=== PATIENT | female | born 1940 | race Caucasian/White ===

== ENCOUNTER 2017-02-14 16:44 | Inpatient (IN) | payer MEDICARE, OTHER ==
[~2017-02-14] VITALS: Ht 162.6 cm; Wt 59.9 kg
[~2017-02-14 16:44] MED LIST: PIPERACILLIN /TAZOBACTAM 3.375 G in IV D5W 50 ML IV SCH
[2017-02-14] MEDS ORDERED: IPRATROPIUM NEB FS 0.5 MG/2.5 ML AMPUL.NEB NEB ONE (17:00)
[2017-02-14] MEDS ORDERED: ALBUTEROL FS 2.5 MG/0.5 ML VIAL.NEB NEB ONE (17:00)
[2017-02-14] MEDS ORDERED: IPRATROPIUM NEB FS 0.5 MG/2.5 ML AMPUL.NEB ONE (17:03)
[2017-02-14] MEDS ORDERED: ALBUTEROL FS 2.5 MG/0.5 ML VIAL.NEB ONE (17:03)
[2017-02-14 17:13] LABS: BASOPHILS % (AUTO) 0.2 % (0.0-2.0); EOSINOPHILS % (AUTO) 0.2 % (0.0-6.0); HEMATOCRIT 30 % (33-45); HEMOGLOBIN 9.9 g/dL (11.5-14.8); LYMPHOCYTES # (AUTO) 0.4 /CMM (0.8-4.8); LYMPHOCYTES % (AUTO) 5.6 % (20.0-44.0); MEAN CORPUSCULAR HEMOGLOBIN 24 PG (26.0-33.0); MEAN CORPUSCULAR HGB CONC 33 g/dl (31.0-36.0); MEAN CORPUSCULAR VOLUME 74 fL (82-100); MONOCYTES # (AUTO) 0.3 /CMM (0.1-1.30); MONOCYTES % (AUTO) 4.2 % (2.0-12.0); NEUTROPHILS % (AUTO) 89.8 % (43.0-81.0); PLATELET COUNT (AUTO) 170 /CMM (150-450); RDW COEFFICIENT OF VARIATION 18.1 (11.5-15.0); RED BLOOD CELL COUNT(AUTO) 4.11 MIL/uL (4.0-5.2); WHITE BLOOD COUNT (AUTO) 7.9 K/uL (4.3-11.0)
[2017-02-14 17:23] LABS: CALCIUM, SERUM 8.8 mg/dL (8.5-10.1); CARBON DIOXIDE 31 mmol/L (21-32); CHLORIDE 96 mmol/L (98-107); CREATININE 0.9 mg/dL (0.6-1.3); GLUCOSE 155 mg/dL (74-106); POTASSIUM 3.3 mmol/L (3.5-5.1); SODIUM SERUM 133 mmol/L (136-145); UREA NITROGEN, BLOOD 16 mg/dL (7-18)
[2017-02-14 17:28] LABS: ALCOHOL, BLOOD < 3 mg/dL (0-0)
[2017-02-14 17:29] LABS: ACETAMINOPHEN 0 ug/ml (10-30); SALICYLATE 2.6 mg/dL (2.8-20.0); TROPONIN I 0.025 ng/mL (0.00-0.056)
[2017-02-14 17:35] LABS: ALANINE AMINOTRANSFERASE 30 U/L (12-78); ALBUMIN 3.4 g/dL (3.4-5.0); ALKALINE PHOSPHATASE 86 U/L (46-116); ASPARTATE AMINOTRANSFERASE 29 U/L (15-37); BILIRUBIN,DIRECT 0.1 mg/dL (0.0-0.2); BILIRUBIN,TOTAL 0.4 mg/dL (0.2-1.0); TOTAL PROTEIN, SERUM 7.7 g/dL (6.4-8.2)
[2017-02-14 17:42] LABS: INR 1.03 (0.87-1.13); PROTHROMBIN TIME 10.7 SECS (9.5-12.7)
[2017-02-14] MEDS ORDERED: CEFTRIAXONE 1 G in IV D5W 50 ML IV ONE (18:00)
[2017-02-14] MEDS ORDERED: IV NS 0.9% 1,000 ML BAG IV ONE ×2 (18:00)
[2017-02-14] MEDS ORDERED: LEVOFLOXACIN 750 MG /D5W 150ML PIGGYBACK IV ONE (18:00)
[2017-02-14] MEDS ORDERED: ACETAMINOPHEN 325 MG TABLET PO PRN (18:00)
[2017-02-14] MEDS ORDERED: POTASSIUM CL. PREMIX PERIPHER. 50 ML IV SCH (18:00)
[2017-02-14] MEDS ORDERED: VANCOMYCIN 1 GM in IV D5W 250 ML IV ONE (18:00)
[2017-02-14] MEDS ORDERED: CEFTRIAXONE 1GM BAG (ER ONLY) 50 ML IV ONE (18:10)
[2017-02-14] MEDS ORDERED: LEVOFLOXACIN 750 MG /D5W 150ML 150 ML IV ONE (18:10)
[2017-02-14] MEDS ORDERED: POTASSIUM CHLORIDE 20 MEQ TAB.PRT.SR PO ONE (19:00)
[2017-02-14 19:41] LABS: IRON, SERUM 18 ug/dl (50-175); TOTAL IRON BINDING CAPACITY 476 ug/dl (250-450)
[2017-02-14 20:36] LABS: ABG BASE EXCESS 0.7 mmol/L; ABG OXYGEN SATURATION 92.1 % (92.0-98.5); ABG PCO2 38.8 mmHg (35.0-45.0); ABG PH 7.427 (7.350-7.450); ABG PO2 68.7 mmHg (75.0-100.0); AaDO2 114.1 mmHg; COHb 0.3 % (0.5-1.5); MetHb 0.5 % (0.0-1.5); O2Hb 91.4 % (94.0-97.0); SITE, ABG Left Radial; VENT MODE, BG 3L NC
[2017-02-14] MEDS ORDERED: FEE PK DOSING 1 MIN EA MC ONE (20:51)
[2017-02-14 21:00] VITALS: BP 186/80
[2017-02-14] MEDS: methylPREDNISolone SOD SUCC 125 MG/2ML VIAL IV SCH (21:41)
[2017-02-14] MEDS: LORAZEPAM INJ 2 MG/ML VIAL IVP PRN (21:41)
[2017-02-14] MEDS: VANCOMYCIN 500 MG in IV D5W 100 ML IV SCH (22:15)
[2017-02-14] MEDS: POTASSIUM CL. PREMIX PERIPHER. 50 ML IV SCH ×3 (22:21→23:55)
[2017-02-14] MEDS: IV NS 0.9% 1,000 ML IV PRN (22:21)
[2017-02-14] MEDS: PIPERACILLIN /TAZOBACTAM 3.375 G in IV D5W 50 ML IV SCH (23:28)
[2017-02-15] VITALS (9 sets, daily range): BP systolic 154–186; BP diastolic 70–94
[2017-02-15] MEDS: IPRATROPIUM NEB FS 0.5 MG/2.5 ML AMPUL.NEB NEB SCH ×4 (02:00→20:29)
[2017-02-15] MEDS: ALBUTEROL FS 2.5 MG/3 ML VIAL.NEB NEB SCH ×4 (02:00→20:29)
[2017-02-15] MEDS: POTASSIUM CL. PREMIX PERIPHER. 50 ML IV SCH (03:34)
[2017-02-15] MEDS: VANCOMYCIN 500 MG in IV D5W 100 ML IV SCH ×2 (04:20→13:48)
[2017-02-15] MEDS: PIPERACILLIN /TAZOBACTAM 3.375 G in IV D5W 50 ML IV SCH ×3 (06:01→17:27)
[2017-02-15 06:51] LABS: HEMATOCRIT 29 % (33-45); HEMOGLOBIN 9.6 g/dL (11.5-14.8); LYMPHOCYTES # (AUTO) 0.3 /CMM (0.8-4.8); LYMPHOCYTES % (AUTO) 5.2 % (20.0-44.0); MEAN CORPUSCULAR HEMOGLOBIN 25 PG (26.0-33.0); MEAN CORPUSCULAR HGB CONC 33 g/dl (31.0-36.0); MEAN CORPUSCULAR VOLUME 77 fL (82-100); MONOCYTES # (AUTO) 0.4 /CMM (0.1-1.30); MONOCYTES % (AUTO) 5.8 % (2.0-12.0); PLATELET COUNT (AUTO) 148 /CMM (150-450); RED BLOOD CELL COUNT(AUTO) 3.76 MIL/uL (4.0-5.2); WHITE BLOOD COUNT (AUTO) 6.7 K/uL (4.3-11.0)
[2017-02-15 07:05] LABS: INR 1.08 (0.87-1.13); PROTHROMBIN TIME 11.2 SECS (9.5-12.7)
[2017-02-15 07:11] LABS: ALANINE AMINOTRANSFERASE 31 U/L (12-78); ALBUMIN 2.7 g/dL (3.4-5.0); ALKALINE PHOSPHATASE 96 U/L (46-116); ASPARTATE AMINOTRANSFERASE 28 U/L (15-37); BILIRUBIN,TOTAL 0.3 mg/dL (0.2-1.0); CALCIUM, SERUM 7.9 mg/dL (8.5-10.1); CARBON DIOXIDE 29 mmol/L (21-32); CHLORIDE 101 mmol/L (98-107); CREATININE 0.8 mg/dL (0.6-1.3); GLUCOSE 247 mg/dL (74-106); SODIUM SERUM 134 mmol/L (136-145); TOTAL PROTEIN, SERUM 6.8 g/dL (6.4-8.2); TROPONIN I 0.033 ng/mL (0.00-0.056); UREA NITROGEN, BLOOD 11 mg/dL (7-18)
[2017-02-15 07:22] LABS: CREATINE KINASE MB 1.6 ng/mL (0-3.6)
[2017-02-15] MEDS: PANTOPRAZOLE 40 MG VIAL IV SCH (09:05)
[2017-02-15] MEDS: methylPREDNISolone SOD SUCC 125 MG/2ML VIAL IV SCH ×3 (09:05→16:08)
[2017-02-15] MEDS: MORPHINE SULFATE INJ 2 MG/ML DISP.SYRIN IV PRN ×2 (10:00→17:28)
[2017-02-15] MEDS: AMLODIPINE BESYLATE 5 MG TABLET PO SCH (11:55)
[2017-02-15] MEDS ORDERED: DEXTROSE 50%-WATER 50 ML DISP.SYRIN IV PRN (12:00)
[2017-02-15] MEDS: BLOOD SUGAR DIAGNOSTIC 1 EACH STRIP IN SCH ×3 (12:04→21:06)
[2017-02-15] MEDS: ACETYLCYSTEINE 10% SOLN 400 MG/4 ML VIAL NEB SCH ×3 (13:31→23:30)
[2017-02-15] MEDS: hydrALAZINE HCL IV 20 MG VIAL IV PRN ×2 (16:07→22:49)
[2017-02-15] MEDS: IV NS 0.9% 1,000 ML IV PRN (18:25)
[2017-02-15] MEDS: LORAZEPAM INJ 2 MG/ML VIAL IVP PRN (20:52)
[2017-02-15] MEDS: VANCOMYCIN 0.75 GM in IV D5W 250 ML IV SCH (21:04)
[2017-02-15] MEDS: INSULIN REGULAR, HUMAN 100 UNIT/ML 3 ML VIAL SQ PRN (21:05)
[2017-02-16] MEDS: PIPERACILLIN /TAZOBACTAM 3.375 G in IV D5W 50 ML IV SCH ×5 (00:35→23:19)
[2017-02-16 00:51] VITALS: BP 136/88
[2017-02-16] MEDS: ALBUTEROL FS 2.5 MG/3 ML VIAL.NEB NEB SCH ×4 (01:30→19:12)
[2017-02-16] MEDS: IPRATROPIUM NEB FS 0.5 MG/2.5 ML AMPUL.NEB NEB SCH ×4 (01:30→19:12)
[2017-02-16 04:00] VITALS: BP 161/66
[2017-02-16] MEDS: hydrALAZINE HCL IV 20 MG VIAL IV PRN (05:15)
[2017-02-16 07:17] LABS: EOSINOPHILS # (AUTO) 0.1 /CMM (0.0-0.7); EOSINOPHILS % (AUTO) 1.3 % (0.0-6.0); HEMATOCRIT 28 % (33-45); HEMOGLOBIN 9.2 g/dL (11.5-14.8); LYMPHOCYTES # (AUTO) 0.5 /CMM (0.8-4.8); LYMPHOCYTES % (AUTO) 4.7 % (20.0-44.0); MEAN CORPUSCULAR HEMOGLOBIN 24 PG (26.0-33.0); MEAN CORPUSCULAR HGB CONC 32 g/dl (31.0-36.0); MEAN CORPUSCULAR VOLUME 75 fL (82-100); MONOCYTES # (AUTO) 0.7 /CMM (0.1-1.30); MONOCYTES % (AUTO) 7.3 % (2.0-12.0); NEUTROPHILS # (AUTO) 8.3 /CMM (1.8-8.9); NEUTROPHILS % (AUTO) 86.7 % (43.0-81.0); PLATELET COUNT (AUTO) 189 /CMM (150-450); RDW COEFFICIENT OF VARIATION 18.7 (11.5-15.0); RED BLOOD CELL COUNT(AUTO) 3.79 MIL/uL (4.0-5.2); WHITE BLOOD COUNT (AUTO) 9.6 K/uL (4.3-11.0)
[2017-02-16] MEDS: ACETYLCYSTEINE 10% SOLN 400 MG/4 ML VIAL NEB SCH ×2 (07:19→16:27)
[2017-02-16 07:36] LABS: CALCIUM, SERUM 8.6 mg/dL (8.5-10.1); CARBON DIOXIDE 26 mmol/L (21-32); CHLORIDE 101 mmol/L (98-107); CREATININE 0.7 mg/dL (0.6-1.3); GLUCOSE 196 mg/dL (74-106); MAGNESIUM 1.6 mg/dL (1.8-2.4); PHOSPHORUS 1.9 mg/dL (2.5-4.9); POTASSIUM 3.3 mmol/L (3.5-5.1); SODIUM SERUM 137 mmol/L (136-145); UREA NITROGEN, BLOOD 11 mg/dL (7-18)
[2017-02-16 08:00] VITALS: BP 156/75
[2017-02-16] MEDS: BLOOD SUGAR DIAGNOSTIC 1 EACH STRIP IN SCH (08:04)
[2017-02-16] MEDS: methylPREDNISolone SOD SUCC 125 MG/2ML VIAL IV SCH ×3 (08:34→17:22)
[2017-02-16] MEDS: PANTOPRAZOLE 40 MG VIAL IV SCH (08:34)
[2017-02-16] MEDS: AMLODIPINE BESYLATE 5 MG TABLET PO SCH (08:37)
[2017-02-16] MEDS: INSULIN REGULAR, HUMAN 100 UNIT/ML 3 ML VIAL SQ PRN ×4 (08:39→21:13)
[2017-02-16] MEDS: VANCOMYCIN 0.75 GM in IV D5W 250 ML IV SCH ×2 (08:45→20:37)
[2017-02-16] MEDS: Z GUARD REMEDY 2 OZ OINT TP SCH (09:42)
[2017-02-16] MEDS ORDERED: POTASSIUM CHLORIDE 20 MEQ TAB.PRT.SR PO ONE (10:00)
[2017-02-16] MEDS: Magnesium 1GM/D5W 100ML PREMIX 100 ML IV SCH ×2 (11:34→12:35)
[2017-02-16] MEDS: IV NS 0.9% 1,000 ML IV PRN (11:48)
[2017-02-16] MEDS: BLOOD SUGAR DIAGNOSTIC 1 EACH STRIP VI SCH ×3 (11:50→21:14)
[2017-02-16 12:00] VITALS: BP 159/76
[2017-02-16] MEDS ORDERED: DEXTROSE 50%-WATER 50 ML DISP.SYRIN IV PRN (12:00)
[2017-02-16] MEDS ORDERED: *INSULIN REGULAR(HUMULIN R)HUM 100 UNIT/ML VIAL SQ PRN (12:00)
[2017-02-16 16:00] VITALS: BP 159/72
[2017-02-16] MEDS ORDERED: K PHOS NEUTRAL 250 MG TABLET PO ONE (17:30)
[2017-02-16] MEDS: LACTOBACILLUS RHAMNOSUS GG 1 EACH CAP.SPRINK PO SCH (17:38)
[2017-02-16 20:00] VITALS: BP 130/66
[2017-02-16] MEDS: LORAZEPAM INJ 2 MG/ML VIAL IVP PRN (23:19)
[2017-02-17] MEDS: IPRATROPIUM NEB FS 0.5 MG/2.5 ML AMPUL.NEB NEB SCH ×4 (02:03→19:48)
[2017-02-17] MEDS: ACETYLCYSTEINE 10% SOLN 400 MG/4 ML VIAL NEB SCH ×3 (02:04→22:58)
[2017-02-17] MEDS: ALBUTEROL FS 2.5 MG/3 ML VIAL.NEB NEB SCH ×4 (02:04→19:48)
[2017-02-17 04:00] VITALS: BP 144/76
[2017-02-17] MEDS: PIPERACILLIN /TAZOBACTAM 3.375 G in IV D5W 50 ML IV SCH ×4 (05:02→23:27)
[2017-02-17 08:00] VITALS: BP 170/76
[2017-02-17 08:01] LABS: EOSINOPHILS % (AUTO) 0.4 % (0.0-6.0); HEMATOCRIT 28 % (33-45); LYMPHOCYTES # (AUTO) 0.6 /CMM (0.8-4.8); LYMPHOCYTES % (AUTO) 5.6 % (20.0-44.0); MEAN CORPUSCULAR HEMOGLOBIN 25 PG (26.0-33.0); MEAN CORPUSCULAR HGB CONC 33 g/dl (31.0-36.0); MEAN CORPUSCULAR VOLUME 75 fL (82-100); MONOCYTES # (AUTO) 0.6 /CMM (0.1-1.30); MONOCYTES % (AUTO) 5.2 % (2.0-12.0); NEUTROPHILS # (AUTO) 10.2 /CMM (1.8-8.9); NEUTROPHILS % (AUTO) 88.8 % (43.0-81.0); PLATELET COUNT (AUTO) 202 /CMM (150-450); RDW COEFFICIENT OF VARIATION 18.3 (11.5-15.0); RED BLOOD CELL COUNT(AUTO) 3.67 MIL/uL (4.0-5.2); WHITE BLOOD COUNT (AUTO) 11.5 K/uL (4.3-11.0)
[2017-02-17] MEDS: BLOOD SUGAR DIAGNOSTIC 1 EACH STRIP VI SCH (08:12)
[2017-02-17 08:18] LABS: CALCIUM, SERUM 8.7 mg/dL (8.5-10.1); CARBON DIOXIDE 28 mmol/L (21-32); CHLORIDE 102 mmol/L (98-107); CREATININE 0.7 mg/dL (0.6-1.3); GLUCOSE 190 mg/dL (74-106); MAGNESIUM 1.9 mg/dL (1.8-2.4); PHOSPHORUS 2.3 mg/dL (2.5-4.9); SODIUM SERUM 139 mmol/L (136-145); UREA NITROGEN, BLOOD 12 mg/dL (7-18)
[2017-02-17] MEDS: INSULIN REGULAR, HUMAN 100 UNIT/ML 3 ML VIAL SQ PRN ×3 (08:23→19:07)
[2017-02-17] MEDS: methylPREDNISolone SOD SUCC 125 MG/2ML VIAL IV SCH ×3 (10:15→19:12)
[2017-02-17] MEDS: PANTOPRAZOLE 40 MG VIAL IV SCH (10:18)
[2017-02-17] MEDS: LACTOBACILLUS RHAMNOSUS GG 1 EACH CAP.SPRINK PO SCH ×2 (10:26→19:15)
[2017-02-17] MEDS: AMLODIPINE BESYLATE 5 MG TABLET PO SCH (10:32)
[2017-02-17] MEDS: POTASSIUM CHLORIDE 20 MEQ TAB.PRT.SR PO SCH ×3 (10:33→15:47)
[2017-02-17] MEDS: Z GUARD REMEDY 2 OZ OINT TP SCH (10:36)
[2017-02-17] MEDS: VANCOMYCIN 0.75 GM in IV D5W 250 ML IV SCH (10:46)
[2017-02-17] MEDS: HYDROCODONE/APAP 5/325MG 1 EACH TABLET PO PRN ×2 (10:59→21:53)
[2017-02-17] MEDS ORDERED: FUROSEMIDE 20 MG/2 ML VIAL IV ONE (11:30)
[2017-02-17] MEDS ORDERED: DEXTROSE 50%-WATER 50 ML DISP.SYRIN IV PRN (11:30)
[2017-02-17] MEDS ORDERED: K PHOS NEUTRAL 250 MG TABLET PO ONE (12:00)
[2017-02-17] MEDS: BLOOD SUGAR DIAGNOSTIC 1 EACH STRIP IN SCH ×3 (12:59→21:43)
[2017-02-17 13:11] VITALS: BP 154/80
[2017-02-17 16:00] VITALS: BP 113/79
[2017-02-17 20:00] VITALS: BP 151/98
[2017-02-17] MEDS: VANCOMYCIN 1 GM in IV D5W 250 ML IV SCH (21:47)
[2017-02-17] MEDS: *INSULIN REGULAR(HUMULIN R)HUM 100 UNIT/ML VIAL SQ PRN (22:08)
[2017-02-18] MEDS: ALBUTEROL FS 2.5 MG/3 ML VIAL.NEB NEB SCH ×4 (01:55→19:23)
[2017-02-18] MEDS: IPRATROPIUM NEB FS 0.5 MG/2.5 ML AMPUL.NEB NEB SCH ×4 (01:55→19:24)
[2017-02-18 04:00] VITALS: BP 142/88
[2017-02-18] MEDS: PIPERACILLIN /TAZOBACTAM 3.375 G in IV D5W 50 ML IV SCH ×4 (05:04→23:24)
[2017-02-18 07:01] LABS: EOSINOPHILS # (AUTO) 0.1 /CMM (0.0-0.7); HEMATOCRIT 31 % (33-45); HEMOGLOBIN 10.1 g/dL (11.5-14.8); LYMPHOCYTES # (AUTO) 0.8 /CMM (0.8-4.8); LYMPHOCYTES % (AUTO) 6.8 % (20.0-44.0); MEAN CORPUSCULAR HEMOGLOBIN 24 PG (26.0-33.0); MEAN CORPUSCULAR HGB CONC 32 g/dl (31.0-36.0); MEAN CORPUSCULAR VOLUME 74 fL (82-100); MONOCYTES # (AUTO) 1.1 /CMM (0.1-1.30); MONOCYTES % (AUTO) 9.4 % (2.0-12.0); NEUTROPHILS # (AUTO) 9.5 /CMM (1.8-8.9); NEUTROPHILS % (AUTO) 82.8 % (43.0-81.0); PLATELET COUNT (AUTO) 248 /CMM (150-450); RDW COEFFICIENT OF VARIATION 18.5 (11.5-15.0); RED BLOOD CELL COUNT(AUTO) 4.24 MIL/uL (4.0-5.2); WHITE BLOOD COUNT (AUTO) 11.5 K/uL (4.3-11.0)
[2017-02-18 07:25] LABS: CALCIUM, SERUM 8.8 mg/dL (8.5-10.1); CARBON DIOXIDE 33 mmol/L (21-32); CHLORIDE 100 mmol/L (98-107); CREATININE 1.1 mg/dL (0.6-1.3); GLUCOSE 127 mg/dL (74-106); MAGNESIUM 1.6 mg/dL (1.8-2.4); PHOSPHORUS 3.3 mg/dL (2.5-4.9); SODIUM SERUM 140 mmol/L (136-145); UREA NITROGEN, BLOOD 17 mg/dL (7-18)
[2017-02-18] MEDS: ACETYLCYSTEINE 10% SOLN 400 MG/4 ML VIAL NEB SCH ×2 (07:39→14:36)
[2017-02-18 08:00] VITALS: BP 158/64
[2017-02-18] MEDS: BLOOD SUGAR DIAGNOSTIC 1 EACH STRIP IN SCH ×4 (08:19→21:20)
[2017-02-18] MEDS: VANCOMYCIN 1 GM in IV D5W 250 ML IV SCH ×2 (08:20→21:21)
[2017-02-18] MEDS: LACTOBACILLUS RHAMNOSUS GG 1 EACH CAP.SPRINK PO SCH ×2 (08:20→17:08)
[2017-02-18] MEDS: methylPREDNISolone SOD SUCC 125 MG/2ML VIAL IV SCH ×3 (08:21→17:08)
[2017-02-18] MEDS: PANTOPRAZOLE 40 MG VIAL IV SCH (08:21)
[2017-02-18] MEDS: AMLODIPINE BESYLATE 5 MG TABLET PO SCH (08:26)
[2017-02-18] MEDS: Z GUARD REMEDY 2 OZ OINT TP SCH (08:27)
[2017-02-18] MEDS: hydrALAZINE HCL IV 20 MG VIAL IV PRN (08:32)
[2017-02-18 08:57] LABS: BAND % (MANUAL) 1 % (0.0-5.0); LYMPHOCYTES % (MANUAL) 10 % (16-48); MONOCYTES % (MANUAL) 10 % (0-11.0); MYELOCYTES % 2 % (0-0); NEUTROPHILS % (MANUAL) 77 (42-76)
[2017-02-18] MEDS: Magnesium 1GM/D5W 100ML PREMIX 100 ML IV SCH ×2 (12:57→14:01)
[2017-02-18] MEDS: POTASSIUM CHLORIDE 20 MEQ TAB.PRT.SR PO SCH ×3 (12:57→15:02)
[2017-02-18] MEDS: INSULIN REGULAR, HUMAN 100 UNIT/ML 3 ML VIAL SQ PRN ×2 (13:01→17:16)
[2017-02-18] MEDS: HYDROCODONE/APAP 5/325MG 1 EACH TABLET PO PRN (17:09)
[2017-02-18 20:00] VITALS: BP 154/74
[2017-02-18] MEDS: *INSULIN REGULAR(HUMULIN R)HUM 100 UNIT/ML VIAL SQ PRN (21:35)
[2017-02-19] MEDS: ALBUTEROL FS 2.5 MG/3 ML VIAL.NEB NEB SCH ×4 (01:16→19:50)
[2017-02-19] MEDS: IPRATROPIUM NEB FS 0.5 MG/2.5 ML AMPUL.NEB NEB SCH ×4 (01:16→19:50)
[2017-02-19] MEDS: ACETYLCYSTEINE 10% SOLN 400 MG/4 ML VIAL NEB SCH ×3 (01:16→15:02)
[2017-02-19] MEDS: PIPERACILLIN /TAZOBACTAM 3.375 G in IV D5W 50 ML IV SCH ×3 (05:04→17:10)
[2017-02-19 07:11] LABS: CALCIUM, SERUM 8.9 mg/dL (8.5-10.1); CARBON DIOXIDE 31 mmol/L (21-32); CHLORIDE 98 mmol/L (98-107); CREATININE 1.1 mg/dL (0.6-1.3); GLUCOSE 206 mg/dL (74-106); PHOSPHORUS 3.5 mg/dL (2.5-4.9); POTASSIUM 3.8 mmol/L (3.5-5.1); SODIUM SERUM 136 mmol/L (136-145); UREA NITROGEN, BLOOD 18 mg/dL (7-18)
[2017-02-19 07:34] LABS: HEMATOCRIT 32 % (33-45); HEMOGLOBIN 10.1 g/dL (11.5-14.8); LYMPHOCYTES # (AUTO) 1.6 /CMM (0.8-4.8); LYMPHOCYTES % (AUTO) 14.1 % (20.0-44.0); MEAN CORPUSCULAR HEMOGLOBIN 24 PG (26.0-33.0); MEAN CORPUSCULAR HGB CONC 32 g/dl (31.0-36.0); MEAN CORPUSCULAR VOLUME 75 fL (82-100); MONOCYTES # (AUTO) 0.7 /CMM (0.1-1.30); MONOCYTES % (AUTO) 6.2 % (2.0-12.0); NEUTROPHILS # (AUTO) 9.1 /CMM (1.8-8.9); NEUTROPHILS % (AUTO) 79.7 % (43.0-81.0); PLATELET COUNT (AUTO) 288 /CMM (150-450); RED BLOOD CELL COUNT(AUTO) 4.19 MIL/uL (4.0-5.2); WHITE BLOOD COUNT (AUTO) 11.5 K/uL (4.3-11.0)
[2017-02-19] MEDS: PANTOPRAZOLE 40 MG VIAL IV SCH (08:26)
[2017-02-19] MEDS: AMLODIPINE BESYLATE 5 MG TABLET PO SCH (08:27)
[2017-02-19] MEDS: methylPREDNISolone SOD SUCC 125 MG/2ML VIAL IV SCH ×3 (08:27→16:56)
[2017-02-19] MEDS: LACTOBACILLUS RHAMNOSUS GG 1 EACH CAP.SPRINK PO SCH ×2 (08:28→16:56)
[2017-02-19] MEDS: Z GUARD REMEDY 2 OZ OINT TP SCH (08:28)
[2017-02-19] MEDS: VANCOMYCIN 1 GM in IV D5W 250 ML IV SCH (08:28)
[2017-02-19] MEDS: BLOOD SUGAR DIAGNOSTIC 1 EACH STRIP IN SCH ×4 (08:28→23:14)
[2017-02-19] MEDS: INSULIN REGULAR, HUMAN 100 UNIT/ML 3 ML VIAL SQ PRN ×3 (08:50→17:09)
[2017-02-19 09:29] LABS: LYMPHOCYTES % (MANUAL) 12 % (16-48); MONOCYTES % (MANUAL) 6 % (0-11.0); NEUTROPHILS % (MANUAL) 82 (42-76)
[2017-02-19] MEDS: Z GUARD REMEDY 2 OZ OINT TP PRN ×2 (12:41→17:09)
[2017-02-19] MEDS ORDERED: LEVO750T21 PO (14:42)
[2017-02-19] MEDS ORDERED: PRED20TA PO (14:50)
[2017-02-19] MEDS ORDERED: NYST5ORA PO (14:50)
[2017-02-19 18:26] VITALS: BP 177/76
[2017-02-19 20:00] VITALS: BP 166/64
[2017-02-19] MEDS: *INSULIN REGULAR(HUMULIN R)HUM 100 UNIT/ML VIAL SQ PRN (23:13)
[2017-02-20] MEDS ORDERED: VANCOMYCIN 1 GM in IV D5W 250 ML IV SCH ×2
[2017-02-20] MEDS: ACETYLCYSTEINE 10% SOLN 400 MG/4 ML VIAL NEB SCH ×4 (00:31→23:30)
[2017-02-20] MEDS: ALBUTEROL FS 2.5 MG/3 ML VIAL.NEB NEB SCH ×4 (00:33→19:12)
[2017-02-20] MEDS: IPRATROPIUM NEB FS 0.5 MG/2.5 ML AMPUL.NEB NEB SCH ×4 (00:33→19:13)
[2017-02-20] MEDS: PIPERACILLIN /TAZOBACTAM 3.375 G in IV D5W 50 ML IV SCH ×3 (00:45→12:31)
[2017-02-20 04:00] VITALS: BP 149/58
[2017-02-20] MEDS: BLOOD SUGAR DIAGNOSTIC 1 EACH STRIP IN SCH ×4 (07:30→23:01)
[2017-02-20 07:34] LABS: CALCIUM, SERUM 8.6 mg/dL (8.5-10.1); CARBON DIOXIDE 35 mmol/L (21-32); CHLORIDE 101 mmol/L (98-107); GLUCOSE 114 mg/dL (74-106); MAGNESIUM 1.7 mg/dL (1.8-2.4); PHOSPHORUS 3.4 mg/dL (2.5-4.9); POTASSIUM 3.1 mmol/L (3.5-5.1); SODIUM SERUM 139 mmol/L (136-145); UREA NITROGEN, BLOOD 18 mg/dL (7-18)
[2017-02-20 07:42] LABS: EOSINOPHILS # (AUTO) 0.1 /CMM (0.0-0.7); EOSINOPHILS % (AUTO) 0.8 % (0.0-6.0); HEMATOCRIT 30 % (33-45); LYMPHOCYTES # (AUTO) 1.4 /CMM (0.8-4.8); LYMPHOCYTES % (AUTO) 13.1 % (20.0-44.0); MEAN CORPUSCULAR HEMOGLOBIN 24 PG (26.0-33.0); MEAN CORPUSCULAR HGB CONC 33 g/dl (31.0-36.0); MEAN CORPUSCULAR VOLUME 73 fL (82-100); MONOCYTES # (AUTO) 1.1 /CMM (0.1-1.30); MONOCYTES % (AUTO) 10.2 % (2.0-12.0); NEUTROPHILS # (AUTO) 8.3 /CMM (1.8-8.9); NEUTROPHILS % (AUTO) 75.9 % (43.0-81.0); PLATELET COUNT (AUTO) 324 /CMM (150-450); RDW COEFFICIENT OF VARIATION 18.4 (11.5-15.0); RED BLOOD CELL COUNT(AUTO) 4.14 MIL/uL (4.0-5.2); WHITE BLOOD COUNT (AUTO) 10.9 K/uL (4.3-11.0)
[2017-02-20 07:45] VITALS: BP 122/67
[2017-02-20 08:00] VITALS: BP 122/67
[2017-02-20] MEDS: LACTOBACILLUS RHAMNOSUS GG 1 EACH CAP.SPRINK PO SCH ×2 (09:11→17:28)
[2017-02-20] MEDS: PANTOPRAZOLE 40 MG VIAL IV SCH (09:12)
[2017-02-20] MEDS: NYSTATIN (PYXIS) 500,000 UNIT/5 ML ORAL.SUSP PO SCH ×3 (09:12→17:28)
[2017-02-20] MEDS: AMLODIPINE BESYLATE 5 MG TABLET PO SCH (09:12)
[2017-02-20] MEDS: Z GUARD REMEDY 2 OZ OINT TP SCH (09:13)
[2017-02-20] MEDS: methylPREDNISolone SOD SUCC 125 MG/2ML VIAL IV SCH ×3 (09:13→17:28)
[2017-02-20] MEDS: INSULIN REGULAR, HUMAN 100 UNIT/ML 3 ML VIAL SQ PRN ×4 (09:14→23:13)
[2017-02-20] MEDS ORDERED: POTASSIUM CHLORIDE 20 MEQ TAB.PRT.SR PO ONE (10:00)
[2017-02-20] MEDS: Magnesium 1GM/D5W 100ML PREMIX 100 ML IV SCH ×2 (11:52→11:53)
[2017-02-20 12:20] VITALS: BP 122/69
[2017-02-20 16:00] VITALS: BP 173/66
[2017-02-20 20:00] VITALS: BP 146/66
[2017-02-21] MEDS: ACETYLCYSTEINE 10% SOLN 400 MG/4 ML VIAL NEB SCH ×3 (00:26→16:05)
[2017-02-21] MEDS: IPRATROPIUM NEB FS 0.5 MG/2.5 ML AMPUL.NEB NEB SCH ×4 (00:41→19:02)
[2017-02-21] MEDS: ALBUTEROL FS 2.5 MG/3 ML VIAL.NEB NEB SCH ×4 (00:41→19:02)
[2017-02-21 04:00] VITALS: BP 149/69
[2017-02-21] MEDS: BLOOD SUGAR DIAGNOSTIC 1 EACH STRIP IN SCH ×4 (07:35→22:00)
[2017-02-21 08:00] VITALS: BP 173/69
[2017-02-21] MEDS: AMLODIPINE BESYLATE 5 MG TABLET PO SCH (08:01)
[2017-02-21] MEDS: NYSTATIN (PYXIS) 500,000 UNIT/5 ML ORAL.SUSP PO SCH ×3 (08:01→16:25)
[2017-02-21] MEDS: methylPREDNISolone SOD SUCC 125 MG/2ML VIAL IV SCH ×3 (08:01→16:25)
[2017-02-21] MEDS: LACTOBACILLUS RHAMNOSUS GG 1 EACH CAP.SPRINK PO SCH ×2 (08:01→16:25)
[2017-02-21] MEDS: hydrALAZINE HCL IV 20 MG VIAL IV PRN (08:01)
[2017-02-21] MEDS: Z GUARD REMEDY 2 OZ OINT TP SCH (08:02)
[2017-02-21] MEDS: PANTOPRAZOLE 40 MG VIAL IV SCH (08:02)
[2017-02-21 08:21] LABS: CALCIUM, SERUM 9.5 mg/dL (8.5-10.1); CARBON DIOXIDE 29 mmol/L (21-32); CHLORIDE 106 mmol/L (98-107); CREATININE 1.7 mg/dL (0.6-1.3); GLUCOSE 84 mg/dL (74-106); MAGNESIUM 2.2 mg/dL (1.8-2.4); POTASSIUM 3.8 mmol/L (3.5-5.1); SODIUM SERUM 143 mmol/L (136-145); UREA NITROGEN, BLOOD 34 mg/dL (7-18)
[2017-02-21] MEDS: INSULIN REGULAR, HUMAN 100 UNIT/ML 3 ML VIAL SQ PRN ×2 (11:58→17:46)
[2017-02-21 16:00] VITALS: BP 134/54
[2017-02-21 20:00] VITALS: BP 150/65
== END 2017-02-21 23:45 | disposition home or self-care (01) | DRG 871 ==
LOC: ER 16:46 → TELE-TD 20:14 → TELE1 02-15 18:47 → MEDSG1 02-16 13:29
DX: A41.9 Sepsis, unspecified organism (principal); G93.41 Metabolic encephalopathy; J96.01 Acute respiratory failure with hypoxia; J15.6 Pneumonia due to other Gram-negative bacteria; E44.0 Moderate protein-calorie malnutrition; J15.9 Unspecified bacterial pneumonia; B37.0 Candidal stomatitis; E11.22 Type 2 diabetes mellitus with diabetic chronic kidney disease; E87.1 Hypo-osmolality and hyponatremia; E11.65 Type 2 diabetes mellitus with hyperglycemia; D63.8 Anemia in other chronic diseases classified elsewhere; E83.51 Hypocalcemia; E87.6 Hypokalemia; F17.200 Nicotine dependence, unspecified, uncomplicated; F41.9 Anxiety disorder, unspecified; F01.50 Vascular dementia, unspecified severity, without behavioral disturbance, psychotic disturbance, mood disturbance, and anxiety; I12.9 Hypertensive chronic kidney disease with stage 1 through stage 4 chronic kidney disease, or unspecified chronic kidney disease; N18.9 Chronic kidney disease, unspecified; Z86.73 Personal history of transient ischemic attack (TIA), and cerebral infarction without residual deficits; Z96.659 Presence of unspecified artificial knee joint; F09 Unspecified mental disorder due to known physiological condition; E88.09 Other disorders of plasma-protein metabolism, not elsewhere classified; Z71.6 Tobacco abuse counseling; Z68.22 Body mass index [BMI] 22.0-22.9, adult; Z79.4 Long term (current) use of insulin
CPT/HCPCS: 31720; 36415; 36600; 70450-TC; 71010-TC; 80048-TC; 80053-TC; 80076-TC; 80202-TC; 82553-TC; 82803-TC; 82962-TC; 83540-TC; 83605-TC; 83735-TC; 84100-TC; 84484-TC; 85025-TC; 85385-TC; 85610-TC; 85730-TC; 87040-TC; 87081-TC; 93307-TC; 94799-TC; 97116-TC; 97530-TC; A4606; C9113; G0480; J0360; J0696; J1815; J1940; J1956; J2060; J2270; J2543; J2930; J3370; J3475; J3480; J7030; J7050; J7060; Z7610

== ENCOUNTER 2017-03-25 08:45 | Inpatient (IN) | payer OTHER ==
[~2017-03-25] VITALS: Ht 167.6 cm; Wt 53.5 kg
[~2017-03-25 08:45] MED LIST changes: +LEVO750T21 PO; +NYST5ORA PO; -PIPERACILLIN /TAZOBACTAM 3.375 G in IV D5W 50 ML IV SCH; +PRED20TA PO
--- NOTE | 2017-03-25 08:50 | NUR ---
BIB RA WITNESSED SLIP AND FALL AND GENERALIZED WEAKNESS. PT IS A/OX2, C/O OF FEELING TIRED. PT DENIES PAIN. DENIES SOB/CP. PT IS COVERED IN STOOL, BEDSHEET IS SOAKING IN URINE. PT CLEANED AND GOWNED. PLACED ON CONT CARDIAC AND POX MONITORING. 86%RA. APPLIED O2 VIA NC. ALL NEEDS ARE ATTENDED, KEPT WARM AND COMFORTABLE. WILL CONT TO MONITOR
[2017-03-25] MEDS ORDERED: IV NS 0.9% 1,000 ML BAG IV ONE (09:00)
[2017-03-25 09:57] LABS: SERUM AMMONIA < 10 umol/L (11-32)
[2017-03-25 09:58] LABS: CALCIUM, SERUM 8.6 mg/dL (8.5-10.1); CARBON DIOXIDE 29 mmol/L (21-32); CHLORIDE 105 mmol/L (98-107); CREATININE 0.8 mg/dL (0.6-1.3); GLUCOSE 123 mg/dL (74-106); POTASSIUM 3.7 mmol/L (3.5-5.1); SODIUM SERUM 142 mmol/L (136-145); UREA NITROGEN, BLOOD 14 mg/dL (7-18)
[2017-03-25 10:00] LABS: BASOPHILS % (AUTO) 0.8 % (0.0-2.0); EOSINOPHILS # (AUTO) 0.1 /CMM (0.0-0.7); EOSINOPHILS % (AUTO) 2.6 % (0.0-6.0); HEMATOCRIT 25 % (33-45); HEMOGLOBIN 8.3 g/dL (11.5-14.8); LYMPHOCYTES # (AUTO) 0.9 /CMM (0.8-4.8); LYMPHOCYTES % (AUTO) 21.5 % (20.0-44.0); MEAN CORPUSCULAR HEMOGLOBIN 26 PG (26.0-33.0); MEAN CORPUSCULAR HGB CONC 34 g/dl (31.0-36.0); MEAN CORPUSCULAR VOLUME 76 fL (82-100); MONOCYTES # (AUTO) 0.6 /CMM (0.1-1.30); MONOCYTES % (AUTO) 13.3 % (2.0-12.0); NEUTROPHILS # (AUTO) 2.7 /CMM (1.8-8.9); NEUTROPHILS % (AUTO) 61.8 % (43.0-81.0); PLATELET COUNT (AUTO) 229 /CMM (150-450); RDW COEFFICIENT OF VARIATION 19.9 (11.5-15.0); RED BLOOD CELL COUNT(AUTO) 3.23 MIL/uL (4.0-5.2); WHITE BLOOD COUNT (AUTO) 4.3 K/uL (4.3-11.0)
[2017-03-25 10:15] LABS: ACETAMINOPHEN 0 ug/ml (10-30); ALANINE AMINOTRANSFERASE 23 U/L (12-78); ALCOHOL, BLOOD < 3 mg/dL (0-0); ALKALINE PHOSPHATASE 82 U/L (46-116); ASPARTATE AMINOTRANSFERASE 22 U/L (15-37); BILIRUBIN,DIRECT 0.1 mg/dL (0.0-0.2); BILIRUBIN,TOTAL 0.3 mg/dL (0.2-1.0); SALICYLATE 0.9 mg/dL (2.8-20.0); TOTAL PROTEIN, SERUM 6.8 g/dL (6.4-8.2)
[2017-03-25 10:26] LABS: BILIRUBIN,URINE NEGATIVE (NEGATIVE); BLOOD, URINE NEGATIVE Ery/uL (NEGATIVE); COLOR,URINE YELLOW (YELLOW); KETONES,URINE NEGATIVE (NEGATIVE); LEUKOCYTE ESTERASE ,URINE NEGATIVE (NEGATIVE); NITRITE, URINE NEGATIVE (NEGATIVE); PROTEIN,URINE NEGATIVE (NEGATIVE); UGLUCOSE NEGATIVE (NEGATIVE); UROBILINOGEN,URINE 0.2 EU/dL (0.2)
[2017-03-25 10:29] LABS: APPEARANCE,URINE CLEAR (CLEAR)
--- NOTE | 2017-03-25 11:03 | NUR ---
BP HIGH AT 204/90. DR LESLIE NOTIFIED
[2017-03-25] MEDS ORDERED: hydrALAZINE HCL IV 20 MG VIAL ONE (11:14)
--- NOTE | 2017-03-25 11:18 | NUR ---
IV hydralyzine given for high BP as ordered by Dr. Malagon. Will cont to monitor BP.
[2017-03-25] MEDS ORDERED: hydrALAZINE HCL IV 20 MG VIAL IV ONE (11:30)
--- NOTE | 2017-03-25 12:12 | NUR ---
PAGED EPIC FOR PANEL
--- NOTE | 2017-03-25 12:15 | NUR ---
admitting nurse will call back to get report.
[2017-03-25] MEDS ORDERED: IV D5/0.45 NACL 1,000 ML IV PRN (12:28)
[2017-03-25] MEDS ORDERED: ACETAMINOPHEN 325 MG TABLET PO PRN ×2 (12:30→13:00)
[2017-03-25] MEDS ORDERED: HYDROCODONE/APAP 5/325MG 1 EACH TABLET PO PRN (12:30)
[2017-03-25] MEDS ORDERED: MAG HYDROX/AL HYDROX/SIMETH 30 ML UDC PO PRN ×2 (12:30→13:00)
[2017-03-25] MEDS ORDERED: MAGNESIUM HYDROXIDE 30 ML UDC PO PRN ×2 (12:30→13:00)
[2017-03-25] MEDS ORDERED: Z GUARD REMEDY 2 OZ OINT TP PRN ×2 (12:30→13:00)
[2017-03-25] MEDS ORDERED: ONDANSETRON HCL/PF 4 MG/2 ML VIAL IVP PRN (12:30)
[2017-03-25] MEDS ORDERED: PANTOPRAZOLE 40 MG VIAL IV SCH (12:30)
--- NOTE | 2017-03-25 12:50 | NUR ---
PTIENT TRANSPORTED TO [facility]
[2017-03-25] MEDS: IV D5/0.45 NACL 1,000 ML IV PRN (15:57)
[2017-03-25 16:00] VITALS: BP 171/73
--- NOTE | 2017-03-25 18:16 | NUR ---
FURNITURE REMOVALISTJAZZ SINGER NOTE PATIENT BROUGHT FROM ER ON [facility]. ALERTED MENTAL STATUS, VERY LETHARGIC AT THIS TIME. RESPONDS TO LIGHT PAIN STIMULI AND VERBAL COMMANDS. IV ON RIGHT FOREARM 18G INTACT AND PATENT NO REDNESS OR SWELLING NOTED. ALL BELONGINGS AT BEDSIDE AND ACCOUNTED FOR. UNKNOWN RESIDENCY. 02 ON 3L NASAL CANNULA TOLERATING WELL. DUONG CATHETER IN PLACE, CLEAR AND YELLOW URINE NOTED. SKIN ISSUES PRESENT. AWAITING MD ORDERS. WILL CONTINUE TO MONITOR THROUGHOUT SHIFT
--- NOTE | 2017-03-25 18:49 | NUR ---
INTERACTIVE VIDEO TECHNICIAN CLOSING NOTE NO NEW CHANGES AT THIS TIME. NO SOB OR DISTRESS NOTED. CALL LIGHT WITHIN REACH AT ALL TIMES. SAFETY MEASURES IMPLEMENTED. ABLE TO COMMUNICATE NEEDS. IV INTACT AND PATENT, IV FLUIDS RUNNING AT 75 ML/HR TOLERATING WELL. ON 3L/MIN NASAL CANNULA TOLERATING WELL WILL ENDORSE TO POLYMER MATERIALS CONSULTANT NURSE FOR NELLY Addendum: 03/25/17 at 1853 by SIMONE HUITRON RN [facility] [id number]
--- NOTE | 2017-03-25 19:30 | NUR ---
TELE/RN NOTES RECEIVED PT. LYING IN BED. AWAKE, ALERT AND ORIENTED X2. BREATHING EVEN AND UNLABORED ON 3LPM O2 VIA NC. NO SOB, RESPIRATORY DISTRESS OR COMPLAINTS OF PAIN NOTED AT THIS TIME. PT. WITH EXTERNAL GLAZE SUPERVISOR PRESENT AND INTACT. CURRENT RHYTHM = SINUS RHYTHM HR 66. PT. WITH RIGHT FOREARM 18 GAUGE PERIPHERAL IV PRESENT, PATENT AND INTACT ADMINISTERING TO PT. D5 1/2 NS @ 75 ML/HR. PT. WITH DUONG CATHETER PRESENT, PATENT AND INTACT DRAINING CLEAR YELLOW URINE. PER DAYSHIFT NURSE PT. IS AWAITING APPROVAL FOR TRANSFER TO [facility] COORDINATOR WILL BE CALLING LATER TONIGHT WITH FURTHER INFORMATION REGARDING POSSIBLE TRANSFER. BED LOCKED AND IN LOWEST POSITION, SIDE RAILS UP X3, BED ALARM ON, CALL LIGHT WITHIN REACH, WILL CONTINUE TO MONITOR.
[2017-03-25 20:00] VITALS: BP 140/51
[2017-03-25] MEDS: HYDROCODONE/APAP 5/325MG 1 EACH TABLET PO PRN (20:42)
[2017-03-25] MEDS: PANTOPRAZOLE 40 MG VIAL IV SCH (20:42)
[2017-03-25] MEDS: ONDANSETRON HCL/PF 4 MG/2 ML VIAL IVP PRN (23:43)
[2017-03-26] VITALS: BP 132/64
--- NOTE | 2017-03-26 00:02 | NUR ---
TELE/RN NOTES NOTIFIED EPIC INSTRUCTIONAL TECHNOLOGY SPECIALIST DR. TITUS PT. IS ANXIOUS AND PER PT. DAUGHTER PT. RECEIVES ATIVAN 1MG IV PUSH WHEN SHE IS IN THE HOSPITAL AND IT IS VERY EFFECTIVE. PER DR. TITUS NEW ORDER: ATIVAN 1MG IV PUSH Q6 HOUR PRN ANXIETY. WILL ADMINISTER TO PT. MEDICATION ORDERED. WILL CONTINUE TO MONITOR.
[2017-03-26] MEDS ORDERED: LORAZEPAM INJ 2 MG/ML VIAL IV PRN (00:30)
[2017-03-26] MEDS ORDERED: LORAZEPAM INJ 2 MG/ML VIAL ONE (00:31)
[2017-03-26 04:00] VITALS: BP 151/85
--- NOTE | 2017-03-26 06:32 | NUR ---
TELE/RN NOTES PT. IS LYING IN BED RESTING. BREATHING EVEN AND UNLABORED ON 3LPM O2 VIA NC. NO SOB, RESPIRATORY DISTRESS OR COMPLAINTS OF PAIN NOTED AT THIS TIME. PT. WITH EXTERNAL CHUCKING AND SAWING MACHINE OPERATOR PRESENT AND INTACT. CURRENT RHYTHM = SINUS RHYTHM HR 68. PT. WITH RIGHT FOREARM 18 GAUGE PERIPHERAL IV PRESENT, PATENT AND INTACT ADMINISTERING TO PT. D5 1/2 NS @ 75 ML/HR. PT. WITH DUONG CATHETER PRESENT, PATENT AND INTACT DRAINING CLEAR YELLOW URINE. PT. REMAINS PENDING TRANSFER TO [facility] DUE TO NO BED AVAILABLE AT THIS TIME. ALL PT. NEEDS MET. BED LOCKED AND IN LOWEST POSITION, SIDE RAILS UP X3, BED ALARM ON, CALL LIGHT WITHIN REACH, WILL ENDORSE TO DAYSHIFT NURSE FOR CONTINUITY OF CARE.
--- NOTE | 2017-03-26 07:10 | NUR ---
OCEAN CLAM BOAT CAPTAIN/OPENING NOTES RECEIVED PT. IN BED A&OX2. TELE MONITOR READING SINUS RHYTHM 73 BPM. BREATHING UNLABORED, AND EVENLY ON OXYGEN AT 3L/MIN VIA NASAL CANNULA. NO S/S OF ACUTE DISTRESS. IV FLUIDS RUNNING AT 75 ML/HR. DUONG CATHETER HAS CLEAR , AND YELLOW URINE WITH 50 CC OUTPUT. BED IS IN LOWEST, AND LOCKED POSITION, 2 SIDE RAILS UP, AND INSTRUCTED PT. TO USE CALL LIGHT FOR ASSISTANCE. ALL NEEDS MET. WILL CONTINUE TO ASSESS AND MONITOR.
--- NOTE | 2017-03-26 07:30 | NUR ---
RN NOTES PT. HAD A HIGH BP, BP WAS 215/95. DR. ERVIN, AND DR. ANDERSON WERE NOTIFIED. ORDERS WERE GIVEN TO ADMINISTER NITRO PATCH, AND 10 MG OF HYDRALAZINE IVP.
--- NOTE | 2017-03-26 08:20 | NUR ---
WOUND CARE CONSULT: PT PRESENTS WITH SMALL STAGE 3 SACRAL ULCER, PRESENT ON ADMISSION. RECOMMENDATIONS MADE FOR SKIN PROTECTION AND WOUND CARE. RECOMMEND LOW AIRLOSS BED. ALL SKIN PROTECTION AND WOUND RECOMMENDATIONS DISCUSSED WITH NURSING STAFF. CURRENT JARED SCORE IS 14. WILL SEE PRN. RECOMMEND SURGICAL CONSULT. MD IN AGREEMENT WITH PLAN OF CARE. Addendum: 03/26/17 at 0823 by SWEETIE DENNY WNDNU Amended: Links added.
[2017-03-26] MEDS ORDERED: HYDROGEL DRESSING 90 GM TUBE TP PRN (08:30)
[2017-03-26] MEDS ORDERED: hydrALAZINE HCL IV 20 MG VIAL IV PRN (08:30)
[2017-03-26] MEDS: IV D5/0.45 NACL 1,000 ML IV PRN (08:31)
[2017-03-26] MEDS: PANTOPRAZOLE 40 MG VIAL IV SCH ×2 (08:39→21:30)
--- NOTE | 2017-03-26 08:44 | NUR ---
RN NOTES PT.'S BP WAS 201/88. NOTIFIED DR. ANDERSON, AND ORDER WAS GIVEN TO ADMINISTER HYDRALAZINE 20 MG IVP.
[2017-03-26] MEDS: HYDROGEL DRESSING 90 GM TUBE TP SCH (09:00)
--- NOTE | 2017-03-26 09:00 | NUR ---
RN NOTES WAS NOT ABLE TO ADMINISTER HYDROGEL SCHEDULED. PER PHARMACY HYDROGEL WAS NOT AVAILABLE AT THIS TIME.
[2017-03-26 09:09] LABS: PHOSPHORUS 3.5 mg/dL (2.5-4.9)
[2017-03-26] MEDS: NITROGLYCERIN 30 GM TUBE TP SCH ×2 (09:18→21:34)
[2017-03-26 10:03] LABS: THYROID STIMULATING HORMONE 1.142 uIU/mL (0.358-3.74)
[2017-03-26] MEDS: ONDANSETRON HCL/PF 4 MG/2 ML VIAL IVP PRN ×2 (10:11→18:01)
[2017-03-26] MEDS ORDERED: hydrALAZINE HCL IV 20 MG VIAL IV ONE (10:45)
--- NOTE | 2017-03-26 11:50 | NUR ---
RN NOTES PT.'S BP DECREASED TO 158/71.
--- NOTE | 2017-03-26 11:55 | NUR ---
RN NOTES TALKED TO PT.'S DAUGHTER JAQULINE VIA PHONE ABOUT AN EGD AND COLONOSCOPY CONSENT PER GI RECOMMENDATIONS. PT.'S DAUGHTER VERBALLY DECLINED TO CONSENT TO THE PROCEDURE. PT. IS AWAITING TO BE TRANSFERRED TO [facility] FOR AN EGD, AND COLONOSCOPY. PER CASE MANAGEMENT PT.'S AUTHORIZATION FOR A BED PLACEMENT IN [facility] IS IN PROCESS.
[2017-03-26 13:32] LABS: BASOPHILS % (AUTO) 0.4 % (0.0-2.0); EOSINOPHILS % (AUTO) 0.3 % (0.0-6.0); HEMATOCRIT 26 % (33-45); HEMOGLOBIN 8.7 g/dL (11.5-14.8); LYMPHOCYTES # (AUTO) 0.5 /CMM (0.8-4.8); LYMPHOCYTES % (AUTO) 8.5 % (20.0-44.0); MEAN CORPUSCULAR HEMOGLOBIN 25 PG (26.0-33.0); MEAN CORPUSCULAR HGB CONC 33 g/dl (31.0-36.0); MEAN CORPUSCULAR VOLUME 76 fL (82-100); MONOCYTES # (AUTO) 0.3 /CMM (0.1-1.30); MONOCYTES % (AUTO) 5.4 % (2.0-12.0); NEUTROPHILS # (AUTO) 4.9 /CMM (1.8-8.9); NEUTROPHILS % (AUTO) 85.4 % (43.0-81.0); PLATELET COUNT (AUTO) 261 /CMM (150-450); RDW COEFFICIENT OF VARIATION 20.5 (11.5-15.0); RED BLOOD CELL COUNT(AUTO) 3.44 MIL/uL (4.0-5.2); WHITE BLOOD COUNT (AUTO) 5.7 K/uL (4.3-11.0)
--- NOTE | 2017-03-26 14:00 | NUR ---
RN NOTES PT. WAS SEEN BY SPEECH THERAPIST FOR A SWALLOW EVALUATION. PER ST PT. REFUSED THE EVALUATION.
[2017-03-26] MEDS: SOD FERRIC GLUC 125 MG in IV NS 0.9% 100 ML IV SCH (15:19)
[2017-03-26 16:00] VITALS: BP 157/67
[2017-03-26] MEDS: Magnesium 1GM/D5W 100ML PREMIX 100 ML IV SCH ×2 (16:35→17:54)
--- NOTE | 2017-03-26 17:57 | NUR ---
RN NOTES WOUND CONSULT PERFORMED BY SWEETIE WOUND CARE NURSE. PER SWEETIE'S REC. NEED TO CLEAN SACRAL AREA WITH NORMAL SALINE, APPLY HYDROGEL TO WOUND, AND COVER WITH MEPILEX.
--- NOTE | 2017-03-26 19:07 | NUR ---
PROGRAMMABLE LOGIC CONTROLLER ASSEMBLER/CLOSING NOTES PT. IN BED A&OX2. TELE MONITOR READING SINUS RHYTHM FOR OBSERVATION. BREATHING UNLABORED, AND EVENLY ON OXYGEN AT 3L/MIN VIA NASAL CANNULA. NO S/S OF ACUTE DISTRESS. IV FLUIDS RUNNING AT 75 ML/HR. DUONG CATHETER HAS CLEAR , AND YELLOW URINE WITH 500 CC OUTPUT. BED IS IN LOWEST, AND LOCKED POSITION, 2 SIDE RAILS UP, AND INSTRUCTED PT. TO USE CALL LIGHT FOR ASSISTANCE. ALL NEEDS MET. WILL ENDORSE REPORT TO NURSE.
--- NOTE | 2017-03-26 19:30 | NUR ---
OPERATIONS SUPERVISOR 2ND SHIFT OPENING NOTES: PATIENT IN BED, AOX2, ON O2 AT 2 LPM VIA NC, BREATHING EVEN AND UNLABORED. APPEARS CALM AND IN NO DISTRESS, BUT DOES COMPLAIN OF HEADACHE. PIV OVER RFA G 18 INTACT AND INFUSING WELL WITH D5 1/2 NS RUNNING AT 75 ML/HR. DUONG CATHETER IN PLACE DRAINING CLOUDY YELLOW URINE. PROVIDED FOR COMFORT AND SAFETY. BED IN LOWEST AND LOCKED POSITION, SIDERAILS UP X 3. BED ALARMS ON. WILL CONT TO MONITOR.
[2017-03-26 20:00] VITALS: BP_SYST 187; BP_SYST 191; BP_DIAS 75; BP_DIAS 78
[2017-03-26] MEDS: hydrALAZINE HCL IV 20 MG VIAL IV PRN (20:31)
--- NOTE | 2017-03-26 20:34 | NUR ---
RN NOTES: PATIENT'S BP : 187/78. RECHECKED TWICE. ADMINISTERED HYDRALAZINE 10 MG IV PRN, WILL CONT TO MONITOR.
--- NOTE | 2017-03-26 21:30 | NUR ---
RN NOTES: PATIENT'S BP RECHECKED AN HOUR AFTER HYDRALAZINE 10 MG IV , AT 189/72, HR: 73. APPLIED NITROBID OINTMENT 1 GM SCHEDULED. WILL CONT TO RECHECK VS.
[2017-03-26] MEDS: HYDROCODONE/APAP 5/325MG 1 EACH TABLET PO PRN (21:45)
--- NOTE | 2017-03-26 21:52 | NUR ---
RN NOTES: ADMINISTERED NORCO 5-325 MG PO FOR LEFT HIP PAIN AND HEADACHE. WILL CONT TO MONITOR.
--- NOTE | 2017-03-26 23:00 | NUR ---
RN NOTES: PATIENT'S BP RECHECKED, STILL ELEVATED AT 186/76, HR: 66. PAGED DR TITUS TO INFORM AND FOR FURTHER ORDERS.
--- NOTE | 2017-03-26 23:20 | NUR ---
RN NOTES: DR TITUS CALLED BACK. INFORMED MD THAT PATIENT'S SBP STILL AT 180S EVEN AFTER BEING GIVEN IV HYDRALAZINE EARLIER. INFORMED THAT HYDRALAZINE 10 MG IV IS PRN Q 4 HRS. MD ORDERED NORVASC 10 MG PO ONE TIME DOSE NOW AND TO ADD HYDRALAZINE 25 MG PO Q 6 PRN ON TOP OF THE HYDRALAZINE 10 MG IV. ORDERS NOTED AND CARRIED OUT.
[2017-03-26] MEDS ORDERED: hydrALAZINE HCL 25 MG TABLET ONE (23:58)
[2017-03-26] MEDS ORDERED: AMLODIPINE BESYLATE 10 MG TABLET ONE (23:58)
--- NOTE | 2017-03-27 00:10 | NUR ---
RN NOTES: PATIENT REFUSING PO HYDRALAZINE AND NORVASC AT THIS TIME. EXPLAINED RISKS OF NOT TAKING MEDICATIONS, EXPLAINED ELEVATED BP WITH HER, HOWEVER PATIENT STILL REFUSING, SAYING "I CAN'T TAKE IT. IT IS NOT SAFE". EXPLAINED AGAIN, PATIENT STILL REFUSES. WILL CONT TO MONITOR.
[2017-03-27] MEDS: hydrALAZINE HCL 25 MG TABLET PO PRN ×2 (01:38)
[2017-03-27] MEDS: AMLODIPINE BESYLATE 10 MG TABLET PO ONE ×2 (01:38)
--- NOTE | 2017-03-27 01:39 | NUR ---
RN NOTES: EXPLAINED TO PATIENT AGAIN NEED FOR PO NORVASC NAD HYDRALAZINE, PATIENT AGREED TO TAKE PO MEDS, WITH SMALL SIP OF WATER. UNABLE TO SCAN BARCODE FOR BOTH BECAUSE WRAPPINGS WERE DISPOSED OF WITH EARLIER ATTEMPT TO GIVE MEDS.
[2017-03-27] MEDS: hydrALAZINE HCL IV 20 MG VIAL IV PRN ×3 (07:00→17:57)
--- NOTE | 2017-03-27 07:03 | NUR ---
RN NOTES: RECHECKED BP AT 179/73, HR: 71. ADMINISTERED HYDRALAZINE 10 MG IV AT THIS TIME.
--- NOTE | 2017-03-27 07:15 | NUR ---
DANCE HALL HOST/HOSTESS CLOSING NOTES: PATIENT IN BED, AOX2, ON O2 AT 2 LPM VIA NC, BREATHING EVEN AND UNLABORED. APPEARS WEAK, DENIES PAIN AT THIS TIME. PIV OVER RFA G 18 INTACT AND PATENT TO FLUSH. DUONG CATHETER IN PLACE, DRAINING CLOUDY YELLOW URINE. DUE MEDS GIVEN. PROVIDED FOR COMFORT AND SAFETY. BED IN LOWEST AND LOCKED POSITION, SIDERAILS UP X 3. CALL LIGHT WITHIN REACH. BED ALARMS ON. WILL ENDORSE TO AM RN FOR NELLY.
[2017-03-27 07:35] LABS: EOSINOPHILS % (AUTO) 0.3 % (0.0-6.0); HEMATOCRIT 26 % (33-45); HEMOGLOBIN 8.9 g/dL (11.5-14.8); LYMPHOCYTES # (AUTO) 0.7 /CMM (0.8-4.8); LYMPHOCYTES % (AUTO) 10.2 % (20.0-44.0); MEAN CORPUSCULAR HEMOGLOBIN 27 PG (26.0-33.0); MEAN CORPUSCULAR HGB CONC 34 g/dl (31.0-36.0); MEAN CORPUSCULAR VOLUME 79 fL (82-100); MONOCYTES # (AUTO) 0.6 /CMM (0.1-1.30); MONOCYTES % (AUTO) 9.1 % (2.0-12.0); NEUTROPHILS # (AUTO) 5.2 /CMM (1.8-8.9); NEUTROPHILS % (AUTO) 80.4 % (43.0-81.0); PLATELET COUNT (AUTO) 284 /CMM (150-450); RDW COEFFICIENT OF VARIATION 20.7 (11.5-15.0); RED BLOOD CELL COUNT(AUTO) 3.29 MIL/uL (4.0-5.2); WHITE BLOOD COUNT (AUTO) 6.5 K/uL (4.3-11.0)
--- NOTE | 2017-03-27 07:35 | NUR ---
RN OPEN NOTES RECEIVED REPORT FROM IMPLEMENT MECHANIC NURSE. PATIENT IS IN BED. ALERT AND ORIENTED TO SELF ONLY. HIGH BLOOD PRESSURE NOTED [id number] CONFIRMED BY MANUALLY BP. WILL F/U WITH MD. BED IN LOW POSITION, LOCKED AND TWO SIDE RAILS ARE UP. CALL LIGHT WITHIN REACH FOR SAFETY. WILL CONTINUE TO MONITOR AND ASSESS PATIENT.
[2017-03-27 07:42] LABS: TROPONIN I 0.067 ng/mL (0.00-0.056)
[2017-03-27 07:45] LABS: ALANINE AMINOTRANSFERASE 25 U/L (12-78); ALBUMIN 2.8 g/dL (3.4-5.0); ALKALINE PHOSPHATASE 92 U/L (46-116); ASPARTATE AMINOTRANSFERASE 25 U/L (15-37); BILIRUBIN,TOTAL 0.3 mg/dL (0.2-1.0); CALCIUM, SERUM 8.9 mg/dL (8.5-10.1); CARBON DIOXIDE 31 mmol/L (21-32); CHLORIDE 101 mmol/L (98-107); CREATININE 0.7 mg/dL (0.6-1.3); GLUCOSE 161 mg/dL (74-106); MAGNESIUM 1.5 mg/dL (1.8-2.4); PHOSPHORUS 3.1 mg/dL (2.5-4.9); POTASSIUM 3.2 mmol/L (3.5-5.1); SODIUM SERUM 139 mmol/L (136-145); TOTAL PROTEIN, SERUM 6.8 g/dL (6.4-8.2); UREA NITROGEN, BLOOD 7 mg/dL (7-18)
--- NOTE | 2017-03-27 07:50 | NUR ---
SPOKE WITH DR ERVIN REGARDING BP. NEW ORDERS RECEIVED
[2017-03-27 08:00] VITALS: BP 201/81
[2017-03-27] MEDS ORDERED: CLONIDINE HCL 0.3 MG/24H PTWK 1 EA PATCH TD SCH ×2 (08:00→11:00)
[2017-03-27] MEDS: hydrALAZINE HCL 50 MG TABLET PO SCH ×3 (09:00→16:17)
[2017-03-27] MEDS ORDERED: POTASSIUM CHLORIDE 20 MEQ TAB.PRT.SR PO SCH (09:00)
[2017-03-27] MEDS: AMLODIPINE BESYLATE 10 MG TABLET PO SCH (09:00)
[2017-03-27] MEDS: ISOSORBIDE DINITRATE (20MG) 20 MG TABLET PO SCH ×2 (09:00→16:17)
[2017-03-27] MEDS: HYDROGEL DRESSING 90 GM TUBE TP SCH (09:00)
[2017-03-27] MEDS: Magnesium 1GM/D5W 100ML PREMIX 100 ML IV SCH ×4 (09:36→13:09)
[2017-03-27] MEDS: PANTOPRAZOLE 40 MG VIAL IV SCH ×2 (09:39→20:33)
[2017-03-27] MEDS: POTASSIUM CHLORIDE 20 MEQ POWDER PACKET PO SCH ×2 (09:55→10:48)
--- NOTE | 2017-03-27 09:56 | NUR ---
PATIENT REFUSING ALL PO MEDS. SPOKE WITH DR PATEL, HYDRALAZINE IV ADMINISTERED
--- NOTE | 2017-03-27 09:57 | NUR ---
RECHECKED BLOOD PRESSURE 180/79 Heart Rate 80
--- NOTE | 2017-03-27 10:48 | NUR ---
PATIENT REFUSING PO MEDS. DR PATEL AWARE AND NEW ORDERS RECEIVED
--- NOTE | 2017-03-27 10:49 | NUR ---
RECHECKED BP 158/68
[2017-03-27 12:00] VITALS: BP 146/49
[2017-03-27] MEDS: Potassium Chloride 10 MEQ, LIDOCAINE HCL/PF 1% 1 ML in IV D5W 50 ML IV SCH ×2 (14:10→15:33)
[2017-03-27 16:00] VITALS: BP 181/74
[2017-03-27] MEDS: SOD FERRIC GLUC 125 MG in IV NS 0.9% 100 ML IV SCH (17:28)
--- NOTE | 2017-03-27 18:36 | NUR ---
RN CLOSING NOTES: PATIENT IN BED, ALERT AND ORIENTED TO SELF ONLY. ON 2L NC, BREATHING EVEN AND UNLABORED. APPEARS CALM AND IN NO DISTRESS. DENIES PAIN. IV INTACT AND PATENT. DUE MEDS GIVEN. MAGNESIUM AND POTASSIUM REPLACED ORDERED. PROVIDED FOR COMFORT AND SAFETY. PATIENT KEPT CLEAN AND DRY. BED IN LOWEST AND LOCKED POSITION, SIDE RAILS UP X 3. CALL LIGHT WITHIN REACH FOR SAFETY. WILL ENDORSE TO RN RESEARCH RN FOR NELLY.
[2017-03-27 20:00] VITALS: BP 181/82
--- NOTE | 2017-03-27 20:00 | NUR ---
ms/rn opening notes patient in bed, resting in bed, able to verbalize needs, will monitor and b/p check elevated, will administered prn med and report for any changes. received endorsement form am rn for jonathan. iv site check with no s/s of infiltration.
[2017-03-27 20:37] VITALS: BP 177/75
--- NOTE | 2017-03-27 20:45 | NUR ---
ms.rn notes monorail car operator md contacted awaiting for call for reported pain in back 10/05 of patient, refuse to take po meds only.
--- NOTE | 2017-03-27 20:58 | NUR ---
ms/rn notes Dr. Garcia order for pain medication , reported pain severe at back with sacral stage 3 wound, refuses oral med for morphine 2mg every 4 hours as needed for pain. order carried out,.
[2017-03-27] MEDS ORDERED: MORPHINE SULFATE INJ 4 MG/ML DISP.SYRIN IV PRN ×2 (21:30→22:00)
[2017-03-27] MEDS ORDERED: MORPHINE SULFATE INJ 2 MG/ML DISP.SYRIN IM PRN (21:30)
[2017-03-27] MEDS ORDERED: MORPHINE SULFATE INJ 4 MG/ML DISP.SYRIN ONE (21:33)
--- NOTE | 2017-03-27 21:50 | NUR ---
ms/rn notes pain medication order 2mg morphine ivp unavailable, charge nurse assist to waste with availability of morphine 4mg ivp .
--- NOTE | 2017-03-27 22:47 | NUR ---
ms/rn notes patient resting comfortably, no guarding and grimace at this time, reported no pain.
[2017-03-28] VITALS (7 sets, daily range): BP systolic 145–189; BP diastolic 70–90
[2017-03-28] MEDS: hydrALAZINE HCL IV 20 MG VIAL IV PRN ×3 (02:54→22:51)
--- NOTE | 2017-03-28 03:14 | NUR ---
ms/rn notes b/p re check after hydralazine iv 10 mg given b/p at 166/74, pulse-68
--- NOTE | 2017-03-28 07:07 | NUR ---
MS/RN CLOSING NOTES PATIENT ABLE TO SLEEP COMFORTABLY IN BED, NO DISCOMFORT, CALL LIGHTS WITHIN REACH, BED IN LOCK POSITION, WILL CONTINUE TO MONITOR.
--- NOTE | 2017-03-28 07:25 | NUR ---
RN OPEN NOTES RECEIVED REPORT FROM CARDIAC CATH TECHNOLOGIST NURSE. PATIENT IS IN BED. ALERT AND ORIENTED TO SELF ONLY. HIGH BLOOD PRESSURE NOTED [id number]. BED IN LOW POSITION, LOCKED AND TWO SIDE RAILS ARE UP. CALL LIGHT WITHIN REACH FOR SAFETY. WILL CONTINUE TO MONITOR AND ASSESS PATIENT.
[2017-03-28] MEDS: AMLODIPINE BESYLATE 10 MG TABLET PO SCH (08:12)
[2017-03-28] MEDS: ISOSORBIDE DINITRATE (20MG) 20 MG TABLET PO SCH ×2 (08:12→17:00)
[2017-03-28] MEDS: hydrALAZINE HCL 50 MG TABLET PO SCH ×3 (08:12→17:00)
[2017-03-28] MEDS: HYDROGEL DRESSING 90 GM TUBE TP SCH (08:50)
[2017-03-28] MEDS: PANTOPRAZOLE 40 MG VIAL IV SCH ×2 (08:51→22:37)
[2017-03-28] MEDS ORDERED: HYDROMORPHONE INJ 0.5 MG/0.5 ML SYRINGE IV PRN (11:30)
[2017-03-28] MEDS: SOD FERRIC GLUC 125 MG in IV NS 0.9% 100 ML IV SCH (14:06)
[2017-03-28 15:52] LABS: EOSINOPHILS % (AUTO) 0.2 % (0.0-6.0); HEMATOCRIT 27 % (33-45); LYMPHOCYTES # (AUTO) 0.8 /CMM (0.8-4.8); LYMPHOCYTES % (AUTO) 12.1 % (20.0-44.0); MEAN CORPUSCULAR HEMOGLOBIN 26 PG (26.0-33.0); MEAN CORPUSCULAR HGB CONC 34 g/dl (31.0-36.0); MEAN CORPUSCULAR VOLUME 75 fL (82-100); MONOCYTES # (AUTO) 0.5 /CMM (0.1-1.30); NEUTROPHILS # (AUTO) 4.9 /CMM (1.8-8.9); NEUTROPHILS % (AUTO) 79.7 % (43.0-81.0); PLATELET COUNT (AUTO) 302 /CMM (150-450); RDW COEFFICIENT OF VARIATION 20.6 (11.5-15.0); RED BLOOD CELL COUNT(AUTO) 3.54 MIL/uL (4.0-5.2); WHITE BLOOD COUNT (AUTO) 6.2 K/uL (4.3-11.0)
[2017-03-28 16:23] LABS: CALCIUM, SERUM 8.9 mg/dL (8.5-10.1); CARBON DIOXIDE 32 mmol/L (21-32); CHLORIDE 100 mmol/L (98-107); CREATININE 0.7 mg/dL (0.6-1.3); GLUCOSE 203 mg/dL (74-106); POTASSIUM 3.4 mmol/L (3.5-5.1); SODIUM SERUM 138 mmol/L (136-145); UREA NITROGEN, BLOOD 11 mg/dL (7-18)
[2017-03-28] MEDS: HYDROCHLOROTHIAZIDE 25 MG TABLET PO SCH (16:59)
[2017-03-28 17:35] LABS: MAGNESIUM 1.6 mg/dL (1.8-2.4); PHOSPHORUS 3.2 mg/dL (2.5-4.9)
--- NOTE | 2017-03-28 18:31 | NUR ---
RN CLOSING NOTES: PATIENT IN BED, ALERT AND ORIENTED TO SELF ONLY. ON 2L NC, BREATHING EVEN AND UNLABORED. APPEARS CALM AND IN NO DISTRESS. DENIES PAIN. IV INTACT AND PATENT. DUE MEDS GIVEN. PROVIDED FOR COMFORT AND SAFETY. PATIENT KEPT CLEAN AND DRY. BED IN LOWEST AND LOCKED POSITION, SIDE RAILS UP X 3. CALL LIGHT WITHIN REACH FOR SAFETY. WILL ENDORSE TO INCOME TAX EXPERT RN FOR NELLY.
--- NOTE | 2017-03-28 20:00 | NUR ---
ms/rn opening notes Patient in bed, hob elevates, on oxygen via nc at 2l, resting comfortably in bes. respirations even and unlabored, attend to needs, no pain verbalize, bed in lock position, reposition for comfort. received endorsement from am rn for jonathan.
[2017-03-29] MEDS: ONDANSETRON HCL/PF 4 MG/2 ML VIAL IVP PRN (04:56)
--- NOTE | 2017-03-29 06:20 | NUR ---
ms/rn notes pateint in bed, alert, oriented x1 able to verbalize needs, relief of nausea observed, bed in lock position, keep skin intact and dry, reposition, and off load extremities, respirations even and unlabored. will endorse to am rn for jonathan.
[2017-03-29 07:57] LABS: BASOPHILS % (AUTO) 0.6 % (0.0-2.0); EOSINOPHILS % (AUTO) 0.5 % (0.0-6.0); HEMATOCRIT 27 % (33-45); HEMOGLOBIN 9.2 g/dL (11.5-14.8); LYMPHOCYTES # (AUTO) 0.9 /CMM (0.8-4.8); LYMPHOCYTES % (AUTO) 14.2 % (20.0-44.0); MEAN CORPUSCULAR HEMOGLOBIN 26 PG (26.0-33.0); MEAN CORPUSCULAR HGB CONC 34 g/dl (31.0-36.0); MEAN CORPUSCULAR VOLUME 77 fL (82-100); MONOCYTES # (AUTO) 0.6 /CMM (0.1-1.30); MONOCYTES % (AUTO) 9.6 % (2.0-12.0); NEUTROPHILS # (AUTO) 4.7 /CMM (1.8-8.9); NEUTROPHILS % (AUTO) 75.1 % (43.0-81.0); PLATELET COUNT (AUTO) 316 /CMM (150-450); RDW COEFFICIENT OF VARIATION 20.7 (11.5-15.0); RED BLOOD CELL COUNT(AUTO) 3.48 MIL/uL (4.0-5.2); WHITE BLOOD COUNT (AUTO) 6.3 K/uL (4.3-11.0)
[2017-03-29 08:00] VITALS: BP 187/72
--- NOTE | 2017-03-29 08:04 | NUR ---
MS/RN OPENING NOTE PATIENT IN BED IN STABLE CONDITION. A/O X 1-2. NO SIGNS OF ACUTE DISTRESS. NO COMPLAIN OF PAIN OR DISCOMFORT. ALL NEEDS ATTENDED TO. CALL LIGHT WITHIN REACH. WILL CONTINUE TO MONITOR TO ENSURE SAFETY.
[2017-03-29 08:58] LABS: CALCIUM, SERUM 8.8 mg/dL (8.5-10.1); CARBON DIOXIDE 31 mmol/L (21-32); CHLORIDE 99 mmol/L (98-107); CREATININE 0.7 mg/dL (0.6-1.3); GLUCOSE 160 mg/dL (74-106); MAGNESIUM 1.6 mg/dL (1.8-2.4); PHOSPHORUS 3.5 mg/dL (2.5-4.9); POTASSIUM 3.5 mmol/L (3.5-5.1); SODIUM SERUM 138 mmol/L (136-145); UREA NITROGEN, BLOOD 12 mg/dL (7-18)
[2017-03-29] MEDS: AMLODIPINE BESYLATE 10 MG TABLET PO SCH (09:13)
[2017-03-29] MEDS: PANTOPRAZOLE 40 MG VIAL IV SCH ×2 (09:13→21:20)
[2017-03-29] MEDS: ISOSORBIDE DINITRATE (20MG) 20 MG TABLET PO SCH ×2 (09:13→17:15)
[2017-03-29] MEDS: HYDROCHLOROTHIAZIDE 25 MG TABLET PO SCH (09:13)
[2017-03-29] MEDS: hydrALAZINE HCL 50 MG TABLET PO SCH ×3 (09:13→17:15)
[2017-03-29] MEDS: HYDROGEL DRESSING 90 GM TUBE TP SCH (09:14)
[2017-03-29] MEDS ORDERED: VALSARTAN 80 MG TABLET PO SCH (10:00)
[2017-03-29] MEDS: Magnesium 1GM/D5W 100ML PREMIX 100 ML IV SCH ×2 (11:16→12:28)
[2017-03-29] MEDS ORDERED: VALS80TA2 PO (11:27)
[2017-03-29] MEDS ORDERED: HYDR25TA4 PO (11:27)
[2017-03-29] MEDS ORDERED: ISOS20TA8 PO (11:27)
[2017-03-29] MEDS ORDERED: HYDR-4076 PO (11:27)
[2017-03-29] MEDS ORDERED: AMLO10TA2 PO (11:27)
[2017-03-29] MEDS ORDERED: CLON0.3T PO (11:29)
--- NOTE | 2017-03-29 13:00 | NUR ---
MS/RN SPOKE WITH PATIENT'S DAUGHTER SPOKE WITH PATIENT'S DAUGHTER KIERSTEN AND MADE AWARE PATIENT IS OKAY TO BE DISCHARGE PER MD ORDER. PER KIERSTEN SHE WONT BE ABLE TO PHARMACY ORDER ENTRY TECHNICIAN PATIENT TILL 10PM SECONDARY TO THEY ARE MOVING TO DIFFERENT HOUSE AND SHE HAS NO WHERE TO PUT HER TILL 10PM. CHARGE NURSE AWARE.
[2017-03-29] MEDS: SOD FERRIC GLUC 125 MG in IV NS 0.9% 100 ML IV SCH (14:36)
[2017-03-29 16:00] VITALS: BP 143/71
--- NOTE | 2017-03-29 16:32 | NUR ---
MS/RN D/C DUONG CATH. S/P DUONG CATH REMOVAL, TOLERATED WELL. WILL CONTINUE TO MONITOR PATIENT VOIDING PATTERN.
[2017-03-29] MEDS: VALSARTAN 80 MG TABLET PO SCH (17:14)
--- NOTE | 2017-03-29 19:01 | NUR ---
MS/RN CLOSING NOTE PATIENT IN BED IN STABLE CONDITION. A/O X 1-2. NO SIGNS OF ACUTE DISTRESS. NO COMPLAIN OF PAIN OR DISCOMFORT. ALL NEEDS ATTENDED TO. CALL LIGHT WITHIN REACH. WILL ENDORSE TO NEXT SHIFT FOR CONTINUITY OF CARE.
--- NOTE | 2017-03-29 19:30 | NUR ---
MS RN OPENING NOTES PATIENT RECEIVED RESTING IN BED IN STABLE CONDITION. A/O X 1-2. ABLE TO ANSWER SIMPLE QUESTIONS. NO SIGNS OF PAIN OR ACUTE DISTRESS. NO DISCOMFORT NOTE. WILL BE DISCHARGED TONIGHT & PER DTR SHE WILL BE HERE AROUND 10 PM TO VPK TEACHER HER MOM. AT RA, O2 SAT 97 %. IV ACCESS TO RFA, INTACT PATENT. ON PUREED DIET. BED IN LOW LOCKED POSITION. CALL LIGHT WITHIN REACH. WILL CONTINUE TO MONITOR TO ENSURE SAFETY.
[2017-03-29 20:00] VITALS: BP 143/61
--- NOTE | 2017-03-29 22:50 | NUR ---
NOT D/C TODAY PT SUPPOSED TO BE DISCHARGED @ 10 PM SINCE DTR STATED SHE WILL SITE SAFETY MANAGER HER MOM @ 10 PM, BUT DIDN'T SHOW UP UNTIL 2230, CALLED THE DTR TO F/U & SHE STATED THAT SHE IS NOT ABLE TO SITE SAFETY MANAGER HER MOM T[place]RUT SINCE SHE IS MOVING TO ANOTHER PLACE BUT SHE WILL SITE SAFETY MANAGER HER MOM @ 0730, FIRST THING IN THE MORNING ( PER DTR ). NOTIFIED PATRICE FINCH. PT WILL BE D/C IN AM NOW. CONTINUING PLAN OF CARE.
--- NOTE | 2017-03-30 06:26 | NUR ---
MS RN CLOSING NOTES PATIENT SLEPT WELL IN BED IN STABLE CONDITION. A/O X 1-2. ABLE TO ANSWER SIMPLE QUESTIONS. NO SIGNS OF PAIN OR ACUTE DISTRESS. NO DISCOMFORT NOTE. WILL BE DISCHARGED TODAY @ 0730, SINCE DTR WILL COME TO PICK HER UP & PER DTR SHE WILL BE HERE AROUND 0730 TO BUSINESS CONSULT HER MOM. AT RA, O2 SAT 96 %. IV ACCESS TO RFA, INTACT PATENT. BED IN LOW LOCKED POSITION. CALL LIGHT WITHIN REACH. WILL ENDORSE TO AM RN FOR CONTINUITY OF CARE.
--- NOTE | 2017-03-30 07:25 | NUR ---
MS RN OPENING NOTES RECEIVED PT FROM NIGHTSHIFT NURSE IN STABLE CONDITION. PT IS A/O X2-3. NO SOB OR SIGNS OF DISTRESS NOTED. BREATHING EVEN AND UNLABORED. PT DENIES ANY PAIN OR WEAKNESS AT THIS TIME. IV NOTED TO BE PATENT AND INTACT. NO REDNESS OR SIGNS OF INFILTRATION NOTED. PT HAS A D/C ORDER. PER NIGHTSHIFT NURSE PT'S DAUGHTER WILL ARRIVE SOMETIME THIS MORNING TO PICK HER UP. WILL FOLLOW UP. BED IN LOW LOCKED POSITION, SIDE RAILS UP X3, CALL LIGHT WITHIN REACH. WILL CONTINUE TO MONITOR.
[2017-03-30 08:45] VITALS: BP 183/72
[2017-03-30] MEDS: PANTOPRAZOLE 40 MG VIAL IV SCH (09:02)
[2017-03-30] MEDS: VALSARTAN 80 MG TABLET PO SCH (09:03)
[2017-03-30] MEDS: hydrALAZINE HCL 50 MG TABLET PO SCH (09:03)
[2017-03-30 09:04] VITALS: BP 183/72
[2017-03-30] MEDS: ISOSORBIDE DINITRATE (20MG) 20 MG TABLET PO SCH (09:04)
[2017-03-30] MEDS: HYDROCHLOROTHIAZIDE 25 MG TABLET PO SCH (09:04)
[2017-03-30] MEDS: AMLODIPINE BESYLATE 10 MG TABLET PO SCH (09:04)
--- NOTE | 2017-03-30 09:15 | NUR ---
MS TECHNICAL SUPPORT INTERNSHIP NOTES PT WAS DISCHARGE FROM FACILITY IN STABLE CONDITION. ALL NEEDS WERE MET DURING SHIFT AND ORDERS CARRIED OUT ACCORDINGLY. ALL DUE MEDS GIVEN. DISCHARGE INSTRUCTIONS DISCUSSED WITH PT AND FAMILY MEMBER UTILIZING EXIT CARE. PT VERBALIZED FULL UNDERSTANDING OF DISCHARGE INSTRUCTIONS AND SIGNED ALL RESPECTIVE PAPERWORK. IV WAS SUCCESSFULLY REMOVED WITH NO COMPLICATIONS. PT WAS ESCORTED TO THE LOBBY BY THE SECURITIES VAULT SUPERVISOR AND SAFELY LEFT THE HOSPITAL VIA BY PRIVATE VEHICLE DRIVEN BY AGUSTINA FAMILY FRIEND.
== END 2017-03-30 09:15 | disposition home or self-care (01) | DRG 377 ==
LOC: ER 08:47 → TELE 13:15 → MED 03-26 09:27 → TELE 03-26 13:31 → MED 03-26 19:06
PROVIDERS: ADMIT Internal Medicine; ATTEND Internal Medicine
DX: K92.2 Gastrointestinal hemorrhage, unspecified (principal); E43 Unspecified severe protein-calorie malnutrition; I21.A1 Myocardial infarction type 2; G93.41 Metabolic encephalopathy; L89.221 Pressure ulcer of left hip, stage 1; L89.153 Pressure ulcer of sacral region, stage 3; E86.0 Dehydration; E11.65 Type 2 diabetes mellitus with hyperglycemia; W19.XXXA Unspecified fall, initial encounter; K52.9 Noninfective gastroenteritis and colitis, unspecified; E83.42 Hypomagnesemia; Z86.73 Personal history of transient ischemic attack (TIA), and cerebral infarction without residual deficits; L89.021 Pressure ulcer of left elbow, stage 1; Z79.899 Other long term (current) drug therapy; D50.9 Iron deficiency anemia, unspecified; F03.90 Unspecified dementia, unspecified severity, without behavioral disturbance, psychotic disturbance, mood disturbance, and anxiety; F09 Unspecified mental disorder due to known physiological condition; I10 Essential (primary) hypertension; Y92.009 Unspecified place in unspecified non-institutional (private) residence as the place of occurrence of the external cause; R29.6 Repeated falls; Z96.659 Presence of unspecified artificial knee joint; Z87.891 Personal history of nicotine dependence
CPT/HCPCS: 36415; 70450-TC; 70551-TC; 71045-TC; 80048-TC; 80053-TC; 80061-TC; 80076-TC; 80305; 81000-TC; 82140-TC; 82272-TC; 82306; 82728-TC; 82962-TC; 83540-TC; 83605-TC; 83735-TC; 84100-TC; 84439-TC; 84443-TC; 84484-TC; 85025-TC; 85730-TC; 86850-TC; 87040-TC; 87081-TC; 87086-TC; 92521; 92526; 93880-TC; 94799-TC; A4606; A6248; C9113; G0480; J0360; J2060; J2270; J2405; J2916; J3475; J3480; J3490; J7030; J7040; J7060; Z7610